=== PATIENT | male | born 1990 | race Caucasian/White ===

== ENCOUNTER 2017-10-24 14:04 | Emergency (ER) | payer MEDICAID, OTHER ==
[2017-10-24] MEDS: AZITHROMYCIN 250 MG TAB PO (15:19)
[2017-10-24] MEDS: CEFTRIAXONE 250 MG INJ IM (15:19)
[2017-10-24 15:47] LABS: ADD UMIC YES; UR ASCORBIC ACID 40 mg/dL (NEGATIVE); UR BILIRUBIN (Dip) NEGATIVE (NEGATIVE); UR BLOOD (Dip) NEGATIVE (NEGATIVE); UR CLARITY CLEAR (CLEAR); UR COLOR YELLOW (YELLOW); UR GLUCOSE (Dip) NEGATIVE (NEGATIVE); UR KETONES (Dip) NEGATIVE (NEGATIVE); UR LEUKOCYTE ESTERASE (Dip) 2+ Leu/ul (NEGATIVE); UR MUCUS MODERATE /HPF (NONE SEEN); UR NITRITE (Dip) NEGATIVE (NEGATIVE); UR RBC 4 /HPF (0-5); UR SPECIFIC GRAVITY (Dip) 1.026 (1.003-1.030); UR TOTAL PROTEIN (Dip) 1+ mg/dl (NEGATIVE); UR UROBILINOGEN (Dip) NEGATIVE (NEGATIVE); UR WBC 46 /HPF (0-5)
[2017-10-25 22:19] LABS: RAPID PLASMA REAGIN REACTIVE (NR)
[2017-10-25 22:27] LABS: RPR TITER 1:16 (0)
== END 2017-10-24 16:41 | disposition home or self-care (01) ==
LOC: FTE 14:04
DX: N34.2 Other urethritis (principal); M25.572 Pain in left ankle and joints of left foot; N50.89 Other specified disorders of the male genital organs; R12 Heartburn; F17.210 Nicotine dependence, cigarettes, uncomplicated
CPT/HCPCS: 73610; 81001; 86592; 87086; 87591; 96372; 99284-25